=== PATIENT | female | born 1935 | race Caucasian/White ===

== ENCOUNTER 2019-05-13 13:25 | Observation (INO) | payer MEDICARE ==
[~2019-05-13] VITALS: Ht 160 cm; Wt 61.6 kg
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
[2019-05-13] MEDS ORDERED: DIPH,PERTUSS(ACELL),TET VAC/PF 0.5 ML IM-VACC ONE ×2 (14:00→14:50)
[2019-05-13] MEDS ORDERED: SODIUM CHLORIDE FLUSH 10ML SYR IVF ONE (14:00)
[2019-05-13 14:13] LABS: BASOPHILS # (AUTO) 0.02 x10^3/uL (0-0.1); BASOPHILS % (AUTO) 0 % (0-1); EOSINOPHILS # (AUTO) 0.05 x10^3/uL (0-0.4); EOSINOPHILS % (AUTO) 1 % (1-7); LYMPHOCYTES % (AUTO) 17 % (22-44); MD NO; MEAN CORPUSCULAR HEMOGLOBIN 32.7 pg (27.0-34.8); MEAN CORPUSCULAR HGB CONC 33.5 g/dL (32.4-35.8); MEAN CORPUSCULAR VOLUME 97.8 fL (80-100); MEAN PLATELET VOLUME 8.7 fL (7.4-10.4); MONOCYTES # (AUTO) 0.24 x10^3/uL (0.2-0.8); MONOCYTES % (AUTO) 4 % (2-9); NEUTROPHILS # (AUTO) 5.48 x10^3/uL (1.8-6.8); NEUTROPHILS % (AUTO) 78 % (42-75); PLATELET COUNT 190 x10^3/uL (130-400); RED BLOOD COUNT 4.52 x10^6/uL (3.82-5.3); RED CELL DISTRIBUTION WIDTH 13.1 % (9.6-15.2)
[2019-05-13 14:22] LABS: ALANINE AMINOTRANSFERASE 21 U/L (12-78); ALBUMIN 3.5 g/dL (3.4-5.0); ANION GAP 6 mmol/L (5-15); CALCIUM 8.9 mg/dL (8.5-10.1); CHLORIDE 103 mmol/L (98-107)
[2019-05-13 14:27] LABS: ALKALINE PHOSPHATASE 68 U/L (45-117); BILIRUBIN,TOTAL 0.4 mg/dL (0.2-1.0); CREATININE 0.89 mg/dL (0.55-1.02); TOTAL PROTEIN 7.4 g/dL (6.4-8.2); TROPONIN I < 0.015 ng/mL (0.000-0.045)
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
--- NOTE | 2019-05-13 16:01 | NUR ---
REPORT GIVEN TO SANTIAGO RIOJAS. ALL QUESTIONS ANSWERED.
[2019-05-13] MEDS ORDERED: L.E.T SOLUTION TP ONE ×2 (16:11→16:30)
--- NOTE | 2019-05-13 16:11 | NUR ---
NuEWillieT given to ROD sun
[2019-05-13] MEDS ORDERED: LIDOCAINE 1%-EPI 1:100K, 20ML ONE (16:46)
[2019-05-13] MEDS ORDERED: LIDOCAINE 2%-EPI 1:100K, 20ML INFIL ONE (17:00)
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
[2019-05-13] MEDS ORDERED: ONDANSETRON ODT 4 MG PO PRN (19:00)
[2019-05-13] MEDS ORDERED: POLYETHYLENE GLYCOL 17 GM PACKET PO PRN (19:00)
[2019-05-13] MEDS ORDERED: PROMETHAZINE 25 MG/ML, 1ML IM PRN (19:00)
[2019-05-13] MEDS ORDERED: OXYcodone IR 5MG TABLET PO PRN (19:00)
[2019-05-13] MEDS ORDERED: MELATONIN 5 MG TABLET PO PRN (19:00)
[2019-05-13] MEDS ORDERED: BISACODYL 10 MG SUPP PR PRN (19:00)
[2019-05-13] MEDS ORDERED: DOCUSATE 100 MG CAPSULE PO PRN (19:00)
[2019-05-13] MEDS ORDERED: ACETAMINOPHEN 325 MG TABLET PO PRN (19:00)
[2019-05-13] MEDS ORDERED: ONDANSETRON 2MG/ML, 2ML IVPush PRN (19:00)
[2019-05-13 19:02] VITALS: BP 107/62
[2019-05-13 19:25] LABS: FREE T4 (FREE THYROXINE) 1.13 ng/dL (0.76-1.46)
[2019-05-13] MEDS: SODIUM CHLORIDE 0.9% 1,000 ML IV SCH (20:00)
[2019-05-14 02:25] VITALS: BP 103/61
[2019-05-14] MEDS: SODIUM CHLORIDE 0.9% 1,000 ML IV SCH (04:42)
[2019-05-14 04:53] LABS: MICROSCOPIC AUTO
[2019-05-14 04:54] LABS: CULTURE INDICATED? YES
[2019-05-14 05:30] LABS: CHOL/HDL RATIO 3.2
[2019-05-14 08:50] VITALS: BP_SYST 111; BP_SYST 116; BP_SYST 128; BP_DIAS 63; BP_DIAS 67; BP_DIAS 75
[2019-05-14 15:52] VITALS: BP 111/53
== END 2019-05-14 17:30 | disposition left against medical advice (07) ==
LOC: ED 15:07 → EDIP 15:08 → INTOOBSV 15:08 → ED 15:46 → 4WST 18:58
PROVIDERS: ADMIT Internal Medicine; ATTEND Internal Medicine
DX: R55 Syncope and collapse (principal); R40.0 Somnolence; Z85.828 Personal history of other malignant neoplasm of skin; Z23 Encounter for immunization; Z79.899 Other long term (current) drug therapy
CPT/HCPCS: 36415; 71045; 80053; 80061; 81001; 83036; 83605; 83735; 84439; 84443; 84484; 85025; 87086; 90471; 90715; 93005; 93306; 93880; 96360; 96361; 99284; G0378; J7030; 99285